=== PATIENT | male | born 1985 | race Caucasian/White ===

== ENCOUNTER 2017-12-29 10:00 | Inpatient (IN) | payer OTHER ==
[2017-12-29] MEDS: CEFAZOLIN 2 GM/50 ML (PMX) 50 ML IVPB (06:30)
[2017-12-29] MEDS: TRANEXAMIC ACID 1,000 MG in DEXTROSE 5% 100 ML IVPB (06:30)
[2017-12-29] MEDS: SOD CHLORIDE 0.9% 100 ML, TRANEXAMIC ACID 3,000 MG IRR (06:30)
[~2017-12-29 10:00] MED LIST: BUPIVACAINE 0.5% (SDV) 30 ML, morphine SULFATE (PF) 8 MG, EPINEPHrine 0.3 MG, KETOROLAC... IRR
[2017-12-29] MEDS: DEXAMETHASONE 1 MG TAB PO (10:53)
[2017-12-29] MEDS: GABAPENTIN 300 MG CAP PO ×2 (10:54→20:54)
[2017-12-29] MEDS: traMADol 50 MG TAB PO (10:54)
[2017-12-29] MEDS ORDERED: BUPIVACAINE 0.5%/EPI (SDV) 30 ML INJ (11:39)
[2017-12-29] MEDS: CA CHLORIDE 10% 10 ML SYRINGE (11:47)
[2017-12-29] MEDS: THROMBIN 5000 UNIT VIAL (11:47)
[2017-12-29] MEDS: POLYMYXIN/BACITRACIN 1L IRRIG IRR (11:47)
[2017-12-29] MEDS ORDERED: OXYCODONE/ACETAMINOPHEN (5/325) TAB PO (13:30)
[2017-12-29] MEDS ORDERED: DIPHENHYDRAMINE 50 MG INJ IV ×2 (13:30→14:00)
[2017-12-29] MEDS ORDERED: ACETAMINOPHEN 500 MG TAB PO (13:30)
[2017-12-29] MEDS ORDERED: ZOLPIDEM 5 MG TAB PO (13:30)
[2017-12-29] MEDS ORDERED: MAGNESIUM HYDROXIDE 30ML CUP PO (13:30)
[2017-12-29] MEDS: morphine 2 MG INJ IV ×3 (13:38→21:03)
[2017-12-29] MEDS ORDERED: HYDROmorphONE 1 MG/5 ML IV SYRINGE IV ×2 (13:46→14:00)
[2017-12-29] MEDS: CEFAZOLIN 1 GM/50 ML (PMX) 50 ML IVPB ×2 (13:51→21:17)
[2017-12-29] MEDS: TRANEXAMIC ACID 1,000 MG in DEXTROSE 5% 100 ML IV ×2 (13:51→23:50)
[2017-12-29] MEDS: HYDROmorphONE 1 MG/5 ML IV SYRINGE IV ×2 (13:55→14:06)
[2017-12-29] MEDS: ONDANSETRON 4 MG INJ IV ×2 (13:55→21:10)
[2017-12-29] MEDS ORDERED: FENTAnyl 50 MCG/ML VIAL IV (14:00)
[2017-12-29] MEDS ORDERED: ONDANSETRON 4 MG INJ IV (14:00)
[2017-12-29] MEDS ORDERED: MEPERIDINE 25 MG INJ IV (14:00)
[2017-12-29] MEDS: METOCLOPRAMIDE 10 MG INJ IV (14:10)
[2017-12-29] MEDS ORDERED: ONDANSETRON 4 MG INJ (19:32)
[2017-12-29] MEDS ORDERED: CEFAZOLIN 1 GM INJ (19:32)
[2017-12-29] MEDS ORDERED: MIDAZOLAM 1 MG/ML 2 ML INJ (19:32)
[2017-12-29] MEDS ORDERED: ROCURONIUM 50 MG INJ (19:32)
[2017-12-29] MEDS ORDERED: PROPOFOL 20 ML (19:32)
[2017-12-29] MEDS ORDERED: LIDOCAINE 2% (SDV) 5 ML INJ (19:32)
[2017-12-29] MEDS: GABAPENTIN 400 MG CAP PO (20:52)
[2017-12-29] MEDS: DULOXETINE 30 MG CAP DR PO (20:53)
[2017-12-29] MEDS: SENNA/DOCUSATE NA (8.6MG/50MG) TAB PO (20:53)
[2017-12-29] MEDS: DEXAMETHASONE 2 MG TAB PO ×2 (20:53→23:55)
[2017-12-29] MEDS: LACTATED RINGER'S 1,000 ML IV ×2 (21:05→23:04)
[2017-12-29] MEDS: traZODone 50 MG TAB PO (21:05)
[2017-12-30] MEDS: KETOROLAC 15 MG INJ IV (05:59)
[2017-12-30] MEDS: DEXAMETHASONE 2 MG TAB PO (05:59)
[2017-12-30] MEDS: CEFAZOLIN 1 GM/50 ML (PMX) 50 ML IVPB (05:59)
[2017-12-30] MEDS: ONDANSETRON 4 MG INJ IV (06:00)
[2017-12-30] MEDS: ASPIRIN 81 MG TAB PO (08:20)
[2017-12-30] MEDS: GABAPENTIN 400 MG CAP PO (08:22)
[2017-12-30] MEDS: SENNA/DOCUSATE NA (8.6MG/50MG) TAB PO (08:22)
[2017-12-30] MEDS: DULOXETINE 30 MG CAP DR PO (08:25)
[2017-12-30] MEDS: OXYCODONE/ACETAMINOPHEN (5/325) TAB PO (08:32)
== END 2017-12-30 12:55 | disposition home or self-care (01) | DRG 501 ==
LOC: REC 10:00 → MS1 14:53
PROC: 0LU Tendons, Supplement (ICD-10-PCS; principal; 2017-12-29 11:58)
DX: M25.351 Other instability, right hip (principal); M96.840 Postprocedural hematoma of a musculoskeletal structure following a musculoskeletal system procedure; S73.191A Other sprain of right hip, initial encounter
CPT/HCPCS: 72170; 86999; 97161